=== PATIENT | female | born 1970 | race Caucasian/White ===

== ENCOUNTER 2019-09-07 23:17 | Emergency (ER) | payer OTHER ==
[~2019-09-07] VITALS: Ht 154.9 cm; Wt 74.8 kg
[~2019-09-07 23:17] MED LIST: ACET500 PO; ALBU90OI INH; ATOR20 PO; BENZTROPINE PO; Bactrim Ds Tab1 EACH PO; CEPH500; CEPH500 PO; CHLO100; CLON1; CLON2 PO; CLOT10 SUSW; CRUTCH USE; CRUTCH2 USE; CRUTCH3 USE; CYCL10 PO; Cephalexin500 MG PO; Cyclobenzaprine5 MG PO; DIPH50 PO; DOXE150; ERGO400 PO; ESCI10; ESCI20; FLAX; FLUO20; FURO20 PO; FURO40; HYDACE5; HYDACE5 PO; HYDPAM50; Hair, Skin & N1 EACH PO; IBUP600 PO; IBUP800; IBUP800 PO; LAMO100 PO; LAMO25; LITH300C PO; LITH300ER; LOPE2C PO; Loxapine50 MG PO; META800 PO; METF500 PO; METPRE4DP PO; MIRT15; MIRT15 PO; MIRT30; NAPR500; NAPR500 PO; NAPR550 PO; NEOPOLHCSU LEFTEAR; NIACIN; OXYACE5T PO; PENVK500 PO; PROM25; PROM25 PO; Percocet 5-3251 EACH PO; QUET100; QUET300; RANI150; RANI150 PO; ROXICODONE5 MG PO; RXCODACET PO; RXHYDACE PO; RXOXYACE PO; RXPENVK250 PO; RXTRAM50 PO; SULTRIDS PO; SUMA25; TRAM50 PO; TRAZ100; TRAZ150T57 PO; Ultram50 MG PO; VITAMIN D PO; Vitamin D2000 UNIT PO; ZIPR60 PO; Zofran4 MG PO
[2019-09-07 23:49] LABS: Source, Urine Clean Catch
[2019-09-07 23:49] LABS: BASOPHILS ABSOLUTE AUTO 0.07 K/mm3 (0.00-0.23); BASOPHILS PERCENT AUTO 1 % (0-2); EOSINOPHILS PERCENT AUTO 3 % (0-6); Hematocrit 44.3 % (33.0-51.0); Hemoglobin 14.2 g/dL (11.5-16.0); IMMATURE GRAN ABSOLUTE AUTO 0.02 K/mm3 (0.00-0.10); IMMATURE GRAN PERCENT AUTO 0 % (0-1); LYMPHOCYTES PERCENT AUTO 33 % (21-46); MONOCYTES ABSOLUTE AUTO 0.79 K/mm3 (0.16-1.47); MONOCYTES PERCENT AUTO 9 % (4-13); Mean Corpuscular HGB 29.5 pg (26.0-34.0); Mean Corpuscular HGB Conc 32.1 g/dL (31.5-36.5); Mean Corpuscular Volume 92 fL (80-100); Mean Platelet Volume 11.3 fL (9.1-12.4); NEUTROPHILS ABSOLUTE AUTO 4.87 K/mm3 (1.96-9.15); NEUTROPHILS PERCENT AUTO 54 % (41-73); Platelet Count 236 K/mm3 (150-400); RDW Coefficient Variation 15.2 % (11.7-14.2); RDW Standard Deviation 51.7 fL (35.1-46.3); Red Blood Cell Count 4.82 M/mm3 (3.80-5.20); White Blood Cell Count 9.05 K/mm3 (4.00-11.30)
[2019-09-07 23:53] LABS: Appearance, Urine Clear (Clear); Bilirubin, Urine 1+ (Neg); Blood, Urine Neg (Neg); Color, Urine Amber (P-Yellow); Glucose Qualitative, Urine Neg (Neg); Ketones, Urine 1+ (Neg); Leukocyte Esterase, Urine 1+ (Neg); Nitrite, Urine Neg (Neg); Protein, Urine 2+ (Neg); Specific Gravity, Urine 1.025 (1.003-1.022); Urobilinogen, Urine 1+ (Normal)
[2019-09-07 23:59] LABS: Bacteria Many /hpf; Mucus Heavy (0-Heavy); Red Blood Cells, Urine 0-2 /hpf (0-2); Squamous Epithelial Cells Mod /hpf (Few)
[2019-09-08 00:03] LABS: Acetaminophen, Random <2.0 ug/mL (10.0-30.0); Alanine Aminotransfer (ALT/SGP 21 U/L (12-78); Albumin, Blood 3.9 g/dL (3.4-5.0); Alk Phos 74 U/L (50-136); Anion Gap 7 mmol/L (6-16); Aspartate Aminotrans (AST/SGOT 32 U/L (12-37); Bilirubin, Total 0.4 mg/dL (0.1-1.0); Blood Urea Nitrogen 19 mg/dL (8-24); Bun/Creatinine Ratio 18.8 (12.0-20.0); CO2, Blood 28 mmol/L (21-32); Calcium, Blood 9.4 mg/dL (8.5-10.1); Chloride, Blood 108 mmol/L (98-108); Creatinine, Blood 1.01 mg/dL (0.40-1.00); Ethanol (Alcohol), Blood, Med <3 mg/dL; Globulin, Blood 3.8 g/dL (2.2-4.0); Glomerular Filtration Rate >60 (60-); Glucose, Blood 135 mg/dL (70-99); Potassium, Blood 4.2 mmol/L (3.5-5.5); Salicylate 2.4 mg/dL (2.8-20.0); Sodium, Blood 143 mmol/L (136-145); Total Protein, Blood 7.7 g/dL (6.4-8.2); Troponin I <0.015 ng/mL (0.000-0.040)
[2019-09-08 00:09] LABS: U Amphetamine Screen Not Detected; U Barbituate Screen Not Detected; U Benzodiazapine Screen DETECTED; U Buprenorphine Screen Not Detected; U Cannabinoids Screen DETECTED; U Cocaine Screen Not Detected; U Methadone Screen Not Detected; U Methamphetamine Screen DETECTED; U Opiates Screen Not Detected; U Oxycodone Screen Not Detected; U Phencyclidine Screen Not Detected; U Propoxyphene Screen Not Detected
[2019-09-08 00:10] LABS: Chloride (POC) 105 mmol/L (98-108); Creatinine (POC) 1.1 mg/dL (0.6-1.0); Glucose (ISTAT POC) 144 mg/dL (70-99); Hemoglobin (POC) 14.6 g/dL (12.0-16.0); Potassium (POC) 3.7 mmol/L (3.5-5.5); Sodium (POC) 142 mmol/L (135-148); Total CO2 (POC) 29 mmol/L (21-32)
== END 2019-09-08 01:25 | disposition home or self-care (01) ==
LOC: ER 23:17
PROVIDERS: Emergency Medicine
DX: F15.129 Other stimulant abuse with intoxication, unspecified (principal); Z91.040 Latex allergy status; Z88.5 Allergy status to narcotic agent; Z91.018 Allergy to other foods; Z79.899 Other long term (current) drug therapy; F31.9 Bipolar disorder, unspecified; Z87.891 Personal history of nicotine dependence
CPT/HCPCS: 71045; 80047; 80053; 81001; 81025; 82947; 84484; 85014; 85025; 87086; 93005; 93010; 96360; 99284-25; G0480; J7030; P9612

== ENCOUNTER → 2019-09-15 | Outpatient (CLI) | payer OTHER ==
[2019-09-18 04:07] LABS: CHLAMYDIA TRACHOMATIS, NAA Negative (Negative); NEISSERIA GONORRHOEAE, NAA Negative (Negative)
== END ==
LOC: LAB SHORT 17:06 → LAB 17:06
PROVIDERS: Nurse Practitioner Family
DX: R82.5 Elevated urine levels of drugs, medicaments and biological substances (principal); Z72.51 High risk heterosexual behavior
CPT/HCPCS: 87491; 87591; G0480

== ENCOUNTER 2019-12-24 20:33 | Emergency (ER) | payer OTHER ==
[~2019-12-24] VITALS: Ht 154.9 cm; Wt 74.8 kg
[~2019-12-24 20:33] MED LIST changes: +ALBU3IS; +GABA800; +LIDO700A20 TOP; +METO10; +Prednisone20 MG PO; +Robaxin-750750 MG PO; +TIZANIDINE HCL4 MG
[2019-12-24 21:18] LABS: BASOPHILS ABSOLUTE AUTO 0.05 K/mm3 (0.00-0.23); BASOPHILS PERCENT AUTO 1 % (0-2); EOSINOPHILS ABSOLUTE AUTO 0.23 K/mm3 (0.00-0.68); EOSINOPHILS PERCENT AUTO 4 % (0-6); Hematocrit 41.8 % (33.0-51.0); Hemoglobin 13.3 g/dL (11.5-16.0); IMMATURE GRAN ABSOLUTE AUTO 0.01 K/mm3 (0.00-0.10); IMMATURE GRAN PERCENT AUTO 0 % (0-1); LYMPHOCYTES ABSOLUTE AUTO 1.71 K/mm3 (0.84-5.20); LYMPHOCYTES PERCENT AUTO 28 % (21-46); MONOCYTES ABSOLUTE AUTO 0.49 K/mm3 (0.16-1.47); MONOCYTES PERCENT AUTO 8 % (4-13); Mean Corpuscular HGB 30.6 pg (26.0-34.0); Mean Corpuscular HGB Conc 31.8 g/dL (31.5-36.5); Mean Corpuscular Volume 96 fL (80-100); Mean Platelet Volume 10.9 fL (9.1-12.4); NEUTROPHILS ABSOLUTE AUTO 3.61 K/mm3 (1.96-9.15); NEUTROPHILS PERCENT AUTO 59 % (41-73); Platelet Count 242 K/mm3 (150-400); RDW Coefficient Variation 13.8 % (11.7-14.2); RDW Standard Deviation 49.3 fL (35.1-46.3); Red Blood Cell Count 4.34 M/mm3 (3.80-5.20)
[2019-12-24 21:26] LABS: International Normalized Ratio 0.96; Prothrombin Time Results 10.3 Sec (9.7-11.5)
[2019-12-24 21:30] LABS: Alanine Aminotransfer (ALT/SGP 30 U/L (12-78); Albumin, Blood 3.8 g/dL (3.4-5.0); Albumin/Globulin Ratio 1.1 (0.8-1.8); Alk Phos 64 U/L (50-136); Anion Gap 4 mmol/L (6-16); Aspartate Aminotrans (AST/SGOT 28 U/L (12-37); Bilirubin, Total 0.3 mg/dL (0.1-1.0); Blood Urea Nitrogen 18 mg/dL (8-24); Bun/Creatinine Ratio 24.7 (12.0-20.0); CO2, Blood 26 mmol/L (21-32); Calcium, Blood 8.7 mg/dL (8.5-10.1); Chloride, Blood 111 mmol/L (98-108); Creatinine, Blood 0.73 mg/dL (0.40-1.00); Ethanol (Alcohol), Blood, Med <3 mg/dL; Globulin, Blood 3.4 g/dL (2.2-4.0); Glomerular Filtration Rate >60 (60-); Glucose, Blood 98 mg/dL (70-99); Potassium, Blood 3.9 mmol/L (3.5-5.5); Sodium, Blood 141 mmol/L (136-145); Total Protein, Blood 7.2 g/dL (6.4-8.2)
[2019-12-24 23:13] LABS: Source, Urine Clean Catch
[2019-12-24 23:15] LABS: Bilirubin, Urine Neg (Neg); Blood, Urine 1+ (Neg); Glucose Qualitative, Urine Neg (Neg); Ketones, Urine Neg (Neg); Leukocyte Esterase, Urine 2+ (Neg); Nitrite, Urine Pos (Neg); Protein, Urine 1+ (Neg); Specific Gravity, Urine 1.025 (1.003-1.022); Urobilinogen, Urine NORM (Normal)
[2019-12-24] MEDS ORDERED: GABA800 (23:22)
[2019-12-24] MEDS ORDERED: DIAZ5 (23:23)
[2019-12-24 23:24] LABS: U Amphetamine Screen Not Detected; U Barbituate Screen Not Detected; U Benzodiazapine Screen DETECTED; U Buprenorphine Screen Not Detected; U Cannabinoids Screen DETECTED; U Cocaine Screen Not Detected; U Methadone Screen Not Detected; U Methamphetamine Screen Not Detected; U Opiates Screen Not Detected; U Oxycodone Screen Not Detected; U Phencyclidine Screen Not Detected; U Propoxyphene Screen Not Detected
[2019-12-24] MEDS ORDERED: OMEP20ER (23:24)
[2019-12-24 23:25] LABS: Appearance, Urine Hazy (Clear); Color, Urine Yellow (P-Yellow)
[2019-12-24 23:26] LABS: Bacteria Many /hpf; Red Blood Cells, Urine 0-2 /hpf (0-2); Squamous Epithelial Cells Rare /hpf (Few); White Blood Cells, Urine 50-100 /hpf (0-5)
[2019-12-25] MEDS ORDERED: KEFLEX500 MG PO (00:18)
== END 2019-12-25 00:45 | disposition home or self-care (01) ==
LOC: ER 20:33
PROVIDERS: Emergency Medicine; Physician Assistant
DX: N39.0 Urinary tract infection, site not specified (principal); F31.9 Bipolar disorder, unspecified; J98.4 Other disorders of lung; Z88.6 Allergy status to analgesic agent; Z91.040 Latex allergy status; Z91.018 Allergy to other foods; Z79.52 Long term (current) use of systemic steroids; Z79.899 Other long term (current) drug therapy; Z87.891 Personal history of nicotine dependence
CPT/HCPCS: 36415; 70450; 80053; 81001; 85025; 85610; 87077; 87086; 87186; 93005; 93010; 99284-25; A9270-GY; G0480

== ENCOUNTER 2020-01-15 13:10 | Emergency (ER) | payer OTHER ==
[~2020-01-15] VITALS: Ht 154.9 cm; Wt 74.8 kg
[~2020-01-15 13:10] MED LIST changes: +DIAZ5; +KEFLEX500 MG PO; +OMEP20ER
[2020-01-15 13:40] LABS: Source, Urine Catheter
[2020-01-15 13:48] LABS: BASOPHILS ABSOLUTE AUTO 0.05 K/mm3 (0.00-0.23); BASOPHILS PERCENT AUTO 1 % (0-2); EOSINOPHILS ABSOLUTE AUTO 0.18 K/mm3 (0.00-0.68); EOSINOPHILS PERCENT AUTO 2 % (0-6); Hematocrit 43.7 % (33.0-51.0); IMMATURE GRAN ABSOLUTE AUTO 0.02 K/mm3 (0.00-0.10); IMMATURE GRAN PERCENT AUTO 0 % (0-1); LYMPHOCYTES ABSOLUTE AUTO 2.15 K/mm3 (0.84-5.20); LYMPHOCYTES PERCENT AUTO 23 % (21-46); MONOCYTES ABSOLUTE AUTO 0.55 K/mm3 (0.16-1.47); MONOCYTES PERCENT AUTO 6 % (4-13); Mean Corpuscular HGB 30.8 pg (26.0-34.0); Mean Corpuscular Volume 96 fL (80-100); NEUTROPHILS PERCENT AUTO 69 % (41-73); Platelet Count 250 K/mm3 (150-400); RDW Coefficient Variation 13.9 % (11.7-14.2); RDW Standard Deviation 49.4 fL (35.1-46.3); Red Blood Cell Count 4.54 M/mm3 (3.80-5.20); White Blood Cell Count 9.35 K/mm3 (4.00-11.30)
[2020-01-15 13:48] LABS: Bilirubin, Urine Neg (Neg); Blood, Urine 5+ (Neg); Glucose Qualitative, Urine Neg (Neg); Ketones, Urine 2+ (Neg); Leukocyte Esterase, Urine 1+ (Neg); Nitrite, Urine Neg (Neg); Protein, Urine 2+ (Neg); Specific Gravity, Urine 1.015 (1.003-1.022); Urobilinogen, Urine NORM (Normal); pH, Urine 6.5 (5.0-8.0)
[2020-01-15 13:55] LABS: Appearance, Urine Hazy (Clear); Color, Urine Yellow (P-Yellow)
[2020-01-15 13:56] LABS: Alanine Aminotransfer (ALT/SGP 22 U/L (12-78); Albumin, Blood 3.7 g/dL (3.4-5.0); Albumin/Globulin Ratio 1.2 (0.8-1.8); Alk Phos 62 U/L (50-136); Anion Gap 6 mmol/L (6-16); Aspartate Aminotrans (AST/SGOT 24 U/L (12-37); Bilirubin, Total 0.4 mg/dL (0.1-1.0); Blood Urea Nitrogen 17 mg/dL (8-24); Bun/Creatinine Ratio 19.4 (12.0-20.0); CO2, Blood 28 mmol/L (21-32); Calcium, Blood 9.1 mg/dL (8.5-10.1); Chloride, Blood 109 mmol/L (98-108); Creatinine, Blood 0.88 mg/dL (0.40-1.00); Globulin, Blood 3.1 g/dL (2.2-4.0); Glomerular Filtration Rate >60 (60-); Glucose, Blood 131 mg/dL (70-99); Potassium, Blood 3.3 mmol/L (3.5-5.5); Sodium, Blood 143 mmol/L (136-145); Total Protein, Blood 6.8 g/dL (6.4-8.2)
[2020-01-15 13:56] LABS: Bacteria Few /hpf; Red Blood Cells, Urine TNTC /hpf (0-2); Squamous Epithelial Cells Few /hpf (Few)
[2020-01-15] MEDS ORDERED: ONDA4ODT MM (14:40)
[2020-01-15] MEDS ORDERED: Norco 10-325 T1 EACH PO (14:40)
== END 2020-01-15 15:15 | disposition home or self-care (01) ==
LOC: ER 13:10
PROVIDERS: Emergency Medicine
DX: N20.0 Calculus of kidney (principal); Z91.040 Latex allergy status; F31.9 Bipolar disorder, unspecified; M54.2 Cervicalgia; G89.29 Other chronic pain; Z79.899 Other long term (current) drug therapy; Z87.891 Personal history of nicotine dependence
CPT/HCPCS: 36415; 80053; 81001; 83690; 85025; 87086; 93005; 93010; 96361; 96374-59; 96375; 99284-25; J1200; J1630; J2405; J3010; J7030; P9612

== ENCOUNTER 2020-11-17 06:46 | Day surgery (SDC) | payer OTHER ==
[~2020-11-17] VITALS: Ht 154.9 cm; Wt 70.0 kg
[~2020-11-17 06:46] MED LIST changes: +ASPI81CH PO; +DIAZ10 PO; +GABA800 PO; +Nitroglycerin1 EAC3 TOP; +Norco 10-325 T1 EACH PO; +ONDA4 PO; +ONDA4ODT MM; +ROSU5 PO
[2020-11-17] MEDS ORDERED: ERGO50000 PO ×2 (07:19→07:20)
--- NOTE | 2020-11-17 09:17 | NUR ---
PT RETURNED TO RECOVERY ROOM IN RECLINER. BILAT RADIAL TR BAND SITES SOFT NON-TENDER WITH NO HEMATOMA, NO PULSATILE BLEEDING. PT DENIES CP. CALL LIGHT IN REACH.
--- NOTE | 2020-11-17 09:40 | NUR ---
BECAUSE OF BILAT TR BANDS; BP CUFF HAS BEEN ON PT'S LEFT ANKLE - PT SITTING UP IN RECLINER WITH LEGS DOWN. RECLINER NOW PLACED IN RECLINED POSITION WITH LEGS MORE ELEVATED.
--- NOTE | 2020-11-17 10:20 | NUR ---
6 CC OF AIR REMOVED FROM NOW DEFLATED RIGHT TR BAND OVER 8 MIN BY [id number] AND 10 CC OF AIR REMOVED FROM NOW DEFLATED LEFT TR BAND OVER 10 MIN BY [id number]. BILAT DEFLATED TR BAND SITES SOFT NON-TENDER WITH NO HEMATOMA AND NO PULSATILE BLEEDING.
--- NOTE | 2020-11-17 10:28 | NUR ---
DISCHARGE INSTRUCTIONS REVIEWED ALL QUESTIONS ANSWERED.
--- NOTE | 2020-11-17 11:54 | NUR ---
19M G IV WAS DISCONTINUED FROM LEFT AC WITH INTACT CANNULA, DRESSED AND WAS IN ESCORT WHEELCHAIR FOR DISCHARGE WHEN THIS RN NOTICED BLEEDING UNDER POLYMEM LEFT RADIAL SITE. PT WAS PLACED BACK IN RECLINER AND IMMEDIATE MANUAL PRESSURE WAS HELD FOR 15 MIN. PT HAD VAGEL RESPONSE DURING MANUAL HOLD OF LEFT RADIAL SITE AND BECAME UNRESPONSIVE FOR PROXIMATELY ONE MINUTE. VS STABLE, BUT NATALIYA CARDIA AND DR MUNIZ ARRIVED TO EVALUATE PT. PT DENIES CHEST PAIN LEFT RADIAL TR BAND SITE SOFT WITH NO HEMATOMA AND NO PULSATILE BLEEDING. CALL LIGHT IN REACH.
--- NOTE | 2020-11-17 12:12 | NUR ---
PT C/O 1/10 CHEST PRESSURE; DR MUNIZ AWARE. NO CHANGES TO LEFT RADIAL SITE.
--- NOTE | 2020-11-17 12:14 | NUR ---
DR MUNIZ IN ROOM TO SEE PT.
--- NOTE | 2020-11-17 12:16 | NUR ---
PT NOW DENIES CP.
--- NOTE | 2020-11-17 13:58 | NUR ---
NO CHANGES TO BILAT RADIAL SITES; BOTH SOFT WITH NO HEMATOMA,NO PULSATILE BLEEDING WITH POLYMEMS AND WRIST BOARDS IN PLACE. PT DENIED CP. 22 G IV DISCONTINUED FROM LEFT AC WITH INTACT DRESSING. PT ESCORTED OUT VIA WHEELCHAIR ESCORT AND WITH ZIO PATCH IN PLACE.
== END 2020-11-17 13:50 | disposition home or self-care (01) ==
LOC: MHTC 06:46
DX: I25.118 Atherosclerotic heart disease of native coronary artery with other forms of angina pectoris (principal); I10 Essential (primary) hypertension; R93.1 Abnormal findings on diagnostic imaging of heart and coronary circulation; E78.5 Hyperlipidemia, unspecified; J45.909 Unspecified asthma, uncomplicated; Z79.82 Long term (current) use of aspirin; E66.9 Obesity, unspecified; G47.33 Obstructive sleep apnea (adult) (pediatric); M54.9 Dorsalgia, unspecified; Z91.040 Latex allergy status; Z88.5 Allergy status to narcotic agent; Z91.018 Allergy to other foods
CPT/HCPCS: 76937; 85347; 93005; 93010; 93246; 93458; 99152; 99153; C1769; C1894; J0461; J1644; J2250; J3010; J7030; J7040; J7050; Q9967

== ENCOUNTER 2021-01-23 15:02 | Emergency (ER) | payer OTHER ==
[~2021-01-23] VITALS: Ht 154.9 cm; Wt 75.3 kg
== END 2021-01-23 17:39 | disposition home or self-care (01) ==
LOC: ER 15:02
DX: S06.9X9A Unspecified intracranial injury with loss of consciousness of unspecified duration, initial encounter (principal); Z79.899 Other long term (current) drug therapy; W10.9XXA Fall (on) (from) unspecified stairs and steps, initial encounter
CPT/HCPCS: 36415; 70450; 80053; 81001; 85025; 87077; 87086; 87186; 93005; 93010; 99284-25

== ENCOUNTER 2021-03-27 08:57 | Emergency (ER) | payer OTHER ==
[~2021-03-27] VITALS: Ht 154.9 cm; Wt 74.8 kg
[~2021-03-27 08:57] MED LIST changes: +ERGO50000 PO
[2021-03-27] MEDS ORDERED: Robaxin750 MG PO (09:58)
== END 2021-03-27 10:15 | disposition home or self-care (01) ==
LOC: ER 08:57
DX: S16.1XXA Strain of muscle, fascia and tendon at neck level, initial encounter (principal); Z79.82 Long term (current) use of aspirin; Z79.899 Other long term (current) drug therapy; Z91.040 Latex allergy status; Z88.5 Allergy status to narcotic agent; Z91.018 Allergy to other foods; Z86.73 Personal history of transient ischemic attack (TIA), and cerebral infarction without residual deficits; X50.0XXA Overexertion from strenuous movement or load, initial encounter; Z87.891 Personal history of nicotine dependence
CPT/HCPCS: 99283

== ENCOUNTER 2021-05-13 14:54 | Emergency (ER) | payer OTHER ==
[~2021-05-13] VITALS: Ht 154.9 cm; Wt 76.7 kg
[~2021-05-13 14:54] MED LIST changes: +Robaxin750 MG PO
[2021-05-13 15:39] LABS: BASOPHILS ABSOLUTE AUTO 0.07 K/mm3 (0.00-0.23); BASOPHILS PERCENT AUTO 1 % (0-2); EOSINOPHILS ABSOLUTE AUTO 0.15 K/mm3 (0.00-0.68); EOSINOPHILS PERCENT AUTO 2 % (0-6); Hematocrit 37.1 % (33.0-51.0); Hemoglobin 12.5 g/dL (11.5-16.0); IMMATURE GRAN ABSOLUTE AUTO 0.02 K/mm3 (0.00-0.10); IMMATURE GRAN PERCENT AUTO 0 % (0-1); LYMPHOCYTES ABSOLUTE AUTO 1.65 K/mm3 (0.84-5.20); LYMPHOCYTES PERCENT AUTO 25 % (21-46); MONOCYTES ABSOLUTE AUTO 0.53 K/mm3 (0.16-1.47); MONOCYTES PERCENT AUTO 8 % (4-13); Mean Corpuscular HGB 31.3 pg (26.0-34.0); Mean Corpuscular HGB Conc 33.7 g/dL (31.5-36.5); Mean Corpuscular Volume 93 fL (80-100); Mean Platelet Volume 11.3 fL (9.1-12.4); NEUTROPHILS ABSOLUTE AUTO 4.08 K/mm3 (1.96-9.15); NEUTROPHILS PERCENT AUTO 63 % (41-73); Platelet Count 195 K/mm3 (150-400); RDW Coefficient Variation 12.9 % (11.7-14.2)
[2021-05-13 15:59] LABS: Alanine Aminotransfer (ALT/SGP 26 U/L (12-78); Albumin, Blood 3.9 g/dL (3.4-5.0); Albumin/Globulin Ratio 1.3 (0.8-1.8); Alk Phos 50 U/L (50-136); Anion Gap 5 mmol/L (6-16); Aspartate Aminotrans (AST/SGOT 26 U/L (12-37); Bilirubin, Total 0.5 mg/dL (0.1-1.0); Blood Urea Nitrogen 26 mg/dL (8-24); Bun/Creatinine Ratio 34.2 (12.0-20.0); CO2, Blood 25 mmol/L (21-32); Calcium, Blood 9.3 mg/dL (8.5-10.1); Chloride, Blood 111 mmol/L (98-108); Creatinine, Blood 0.76 mg/dL (0.40-1.00); Glomerular Filtration Rate >60 (60-); Glucose, Blood 109 mg/dL (70-99); Potassium, Blood 3.7 mmol/L (3.5-5.5); Sodium, Blood 141 mmol/L (136-145); Total Protein, Blood 6.9 g/dL (6.4-8.2); Troponin I <0.015 ng/mL (0.000-0.040)
== END 2021-05-13 20:06 | disposition home or self-care (01) ==
LOC: ER 14:54
PROVIDERS: Physician Assistant
DX: R07.9 Chest pain, unspecified (principal); Z79.82 Long term (current) use of aspirin; Z79.899 Other long term (current) drug therapy; Z87.891 Personal history of nicotine dependence
CPT/HCPCS: 36415; 71046; 80053; 83690; 83880; 84484; 85025; 93005; 93010; 99285-25

== ENCOUNTER 2021-05-16 19:03 | Emergency (ER) | payer OTHER ==
[~2021-05-16] VITALS: Ht 154.9 cm; Wt 82.5 kg
[2021-05-16 20:29] LABS: BASOPHILS ABSOLUTE AUTO 0.05 K/mm3 (0.00-0.23); BASOPHILS PERCENT AUTO 1 % (0-2); EOSINOPHILS ABSOLUTE AUTO 0.29 K/mm3 (0.00-0.68); EOSINOPHILS PERCENT AUTO 6 % (0-6); Hematocrit 34.5 % (33.0-51.0); Hemoglobin 11.4 g/dL (11.5-16.0); IMMATURE GRAN ABSOLUTE AUTO 0.02 K/mm3 (0.00-0.10); IMMATURE GRAN PERCENT AUTO 0 % (0-1); LYMPHOCYTES ABSOLUTE AUTO 1.35 K/mm3 (0.84-5.20); LYMPHOCYTES PERCENT AUTO 25 % (21-46); MONOCYTES ABSOLUTE AUTO 0.45 K/mm3 (0.16-1.47); MONOCYTES PERCENT AUTO 9 % (4-13); Mean Corpuscular HGB 31.8 pg (26.0-34.0); Mean Corpuscular Volume 96 fL (80-100); Mean Platelet Volume 11.2 fL (9.1-12.4); NEUTROPHILS ABSOLUTE AUTO 3.16 K/mm3 (1.96-9.15); NEUTROPHILS PERCENT AUTO 59 % (41-73); Platelet Count 184 K/mm3 (150-400); RDW Coefficient Variation 13.4 % (11.7-14.2); RDW Standard Deviation 47.9 fL (35.1-46.3); Red Blood Cell Count 3.58 M/mm3 (3.80-5.20); White Blood Cell Count 5.32 K/mm3 (4.00-11.30)
[2021-05-16 20:43] LABS: Source, Urine Clean Catch
[2021-05-16 20:46] LABS: Appearance, Urine Clear (Clear); Bilirubin, Urine Neg (Neg); Blood, Urine Neg (Neg); Color, Urine Yellow (P-Yellow); Glucose Qualitative, Urine Neg (Neg); Ketones, Urine Neg (Neg); Leukocyte Esterase, Urine 1+ (Neg); Nitrite, Urine Neg (Neg); Protein, Urine Neg (Neg); Urobilinogen, Urine NORM (Normal)
[2021-05-16 20:58] LABS: Alanine Aminotransfer (ALT/SGP 23 U/L (12-78); Albumin, Blood 3.6 g/dL (3.4-5.0); Albumin/Globulin Ratio 1.2 (0.8-1.8); Alk Phos 44 U/L (50-136); Anion Gap 3 mmol/L (6-16); Aspartate Aminotrans (AST/SGOT 22 U/L (12-37); Bilirubin, Total 0.3 mg/dL (0.1-1.0); Blood Urea Nitrogen 28 mg/dL (8-24); Bun/Creatinine Ratio 28.3 (12.0-20.0); CO2, Blood 27 mmol/L (21-32); Calcium, Blood 8.7 mg/dL (8.5-10.1); Chloride, Blood 113 mmol/L (98-108); Creatinine, Blood 0.99 mg/dL (0.40-1.00); Glomerular Filtration Rate 59 (60-); Glucose, Blood 106 mg/dL (70-99); Potassium, Blood 4.1 mmol/L (3.5-5.5); Sodium, Blood 143 mmol/L (136-145); Total Protein, Blood 6.6 g/dL (6.4-8.2); Troponin I <0.015 ng/mL (0.000-0.040)
[2021-05-16 21:06] LABS: Bacteria Many /hpf; Red Blood Cells, Urine Not Seen /hpf (0-2); Squamous Epithelial Cells Few /hpf (Few); White Blood Cells, Urine 25-50 /hpf (0-5)
[2021-05-17 00:30] LABS: Free Thyroxine 0.87 ng/dL (0.70-1.60); Thyroid Stimulating Hormone 0.358 uIU/mL (0.360-4.800)
== END 2021-05-17 01:36 | disposition home or self-care (01) ==
LOC: ER 19:03
PROVIDERS: Physician Assistant; Student in an Organized Health Care Education/Training Program
DX: R06.02 Shortness of breath (principal); M79.89 Other specified soft tissue disorders; R07.9 Chest pain, unspecified; R00.1 Bradycardia, unspecified; Z87.891 Personal history of nicotine dependence; Z91.040 Latex allergy status; Z88.5 Allergy status to narcotic agent; Z91.018 Allergy to other foods; Z79.82 Long term (current) use of aspirin; Z79.899 Other long term (current) drug therapy
CPT/HCPCS: 36415; 71046; 80053; 81001; 83690; 83880; 84439; 84443; 84484; 85025; 87077; 87086; 87186; 93005; 93010; 93970; 99285-25

== ENCOUNTER 2021-06-23 13:48 | Emergency (ER) | payer OTHER ==
[~2021-06-23] VITALS: Ht 154.9 cm; Wt 80.7 kg
[2021-06-23 14:28] LABS: BASOPHILS ABSOLUTE AUTO 0.04 K/mm3 (0.00-0.23); BASOPHILS PERCENT AUTO 1 % (0-2); EOSINOPHILS ABSOLUTE AUTO 0.25 K/mm3 (0.00-0.68); EOSINOPHILS PERCENT AUTO 4 % (0-6); Hematocrit 37.6 % (33.0-51.0); Hemoglobin 12.4 g/dL (11.5-16.0); IMMATURE GRAN ABSOLUTE AUTO 0.01 K/mm3 (0.00-0.10); IMMATURE GRAN PERCENT AUTO 0 % (0-1); LYMPHOCYTES ABSOLUTE AUTO 1.47 K/mm3 (0.84-5.20); LYMPHOCYTES PERCENT AUTO 24 % (21-46); MONOCYTES ABSOLUTE AUTO 0.49 K/mm3 (0.16-1.47); MONOCYTES PERCENT AUTO 8 % (4-13); Mean Corpuscular HGB 31.2 pg (26.0-34.0); Mean Corpuscular Volume 95 fL (80-100); Mean Platelet Volume 10.9 fL (9.1-12.4); NEUTROPHILS ABSOLUTE AUTO 3.91 K/mm3 (1.96-9.15); NEUTROPHILS PERCENT AUTO 63 % (41-73); Platelet Count 200 K/mm3 (150-400); Red Blood Cell Count 3.97 M/mm3 (3.80-5.20); White Blood Cell Count 6.17 K/mm3 (4.00-11.30)
[2021-06-23 14:54] LABS: Alanine Aminotransfer (ALT/SGP 23 U/L (12-78); Albumin, Blood 3.9 g/dL (3.4-5.0); Albumin/Globulin Ratio 1.3 (0.8-1.8); Alk Phos 45 U/L (50-136); Anion Gap 3 mmol/L (6-16); Aspartate Aminotrans (AST/SGOT 32 U/L (12-37); Bilirubin, Total 0.3 mg/dL (0.1-1.0); Blood Urea Nitrogen 29 mg/dL (8-24); Bun/Creatinine Ratio 35.4 (12.0-20.0); CO2, Blood 26 mmol/L (21-32); Calcium, Blood 9.2 mg/dL (8.5-10.1); Chloride, Blood 109 mmol/L (98-108); Creatinine, Blood 0.82 mg/dL (0.40-1.00); Globulin, Blood 3.1 g/dL (2.2-4.0); Glomerular Filtration Rate >60 (60-); Glucose, Blood 87 mg/dL (70-99); Potassium, Blood 4.5 mmol/L (3.5-5.5); Sodium, Blood 138 mmol/L (136-145); Troponin I <0.015 ng/mL (0.000-0.040)
== END 2021-06-23 18:05 | disposition home or self-care (01) ==
LOC: ER 13:48
PROVIDERS: Student in an Organized Health Care Education/Training Program
DX: R60.0 Localized edema (principal); Z91.040 Latex allergy status; Z88.5 Allergy status to narcotic agent; Z91.018 Allergy to other foods; Z79.899 Other long term (current) drug therapy; Z79.82 Long term (current) use of aspirin; Z87.891 Personal history of nicotine dependence
CPT/HCPCS: 36415; 71046; 80053; 83880; 84484; 85025; 93005; 93010

== ENCOUNTER → 2021-09-20 | Outpatient (CLI) | payer OTHER | END | disposition home or self-care (01) | LOC: LAB 15:52 → LAB SHORT 15:52 | DX: R30.0 Dysuria (principal) | CPT/HCPCS: 87077; 87086; 87186 ==

== ENCOUNTER → 2022-03-07 | Outpatient (CLI) | payer OTHER ==
[2022-03-07 14:56] LABS: Source, Urine Clean Catch
[2022-03-07 17:33] LABS: Appearance, Urine Hazy (Clear); Bilirubin, Urine Neg (Neg); Blood, Urine 1+ (Neg); Color, Urine Yellow (P-Yellow); Glucose Qualitative, Urine Neg (Neg); Ketones, Urine Neg (Neg); Leukocyte Esterase, Urine 2+ (Neg); Nitrite, Urine Pos (Neg); Protein, Urine 1+ (Neg); Specific Gravity, Urine 1.015 (1.003-1.022); Urobilinogen, Urine NORM (Normal); pH, Urine 6.5 (5.0-8.0)
[2022-03-07 17:41] LABS: Bacteria Many /hpf; Squamous Epithelial Cells Mod /hpf (Few); Transitional Epithelial Cells Few /hpf (0-Rare); White Blood Cells, Urine 25-50 /hpf (0-5)
[2022-03-07 17:42] LABS: Hyaline Casts 0-2 /lpf (0-2)
== END | disposition home or self-care (01) ==
LOC: LAB SHORT 14:55 → LAB FUT 02-20 14:25 → EDSTATUS 02-20 14:25
PROVIDERS: Obstetrics & Gynecology Female Pelvic Medicine and Reconstructive Surgery
DX: N39.41 Urge incontinence (principal)
CPT/HCPCS: 81001

== ENCOUNTER → 2022-07-18 | Outpatient (CLI) | payer OTHER | END | disposition home or self-care (01) | LOC: LAB 14:40 → LAB SHORT 14:40 | DX: H60.501 Unspecified acute noninfective otitis externa, right ear (principal) | CPT/HCPCS: 87070; 87077; 87147; 87186; 87205 ==

== ENCOUNTER 2022-10-14 11:14 | Emergency (ER) | payer OTHER ==
[~2022-10-14] VITALS: Ht 154.9 cm; Wt 77.1 kg
== END 2022-10-14 15:13 | disposition home or self-care (01) ==
LOC: ER 11:14
DX: M25.511 Pain in right shoulder (principal); Z91.040 Latex allergy status; Z88.5 Allergy status to narcotic agent; Z91.018 Allergy to other foods; Z79.82 Long term (current) use of aspirin; Z79.899 Other long term (current) drug therapy
CPT/HCPCS: 73030; 93971

== ENCOUNTER → 2023-01-30 | Outpatient (CLI) | payer OTHER | END | disposition home or self-care (01) | LOC: LAB SHORT 15:30 → LAB 15:30 | DX: B35.0 Tinea barbae and tinea capitis (principal) | CPT/HCPCS: 87070; 87077; 87147; 87186; 87205 ==

== ENCOUNTER 2023-02-07 12:00 | Emergency (ER) | payer OTHER ==
[~2023-02-07] VITALS: Ht 162.6 cm; Wt 72.6 kg
[2023-02-07 12:32] LABS: BASOPHILS ABSOLUTE AUTO 0.04 K/mm3 (0.00-0.23); BASOPHILS PERCENT AUTO 1 % (0-2); EOSINOPHILS ABSOLUTE AUTO 0.13 K/mm3 (0.00-0.68); EOSINOPHILS PERCENT AUTO 2 % (0-6); Hematocrit 39.1 % (33.0-51.0); Hemoglobin 13.2 g/dL (11.5-16.0); IMMATURE GRAN ABSOLUTE AUTO 0.01 K/mm3 (0.00-0.10); IMMATURE GRAN PERCENT AUTO 0 % (0-1); LYMPHOCYTES ABSOLUTE AUTO 1.29 K/mm3 (0.84-5.20); LYMPHOCYTES PERCENT AUTO 23 % (21-46); MONOCYTES ABSOLUTE AUTO 0.46 K/mm3 (0.16-1.47); MONOCYTES PERCENT AUTO 8 % (4-13); Mean Corpuscular HGB Conc 33.8 g/dL (31.5-36.5); Mean Corpuscular Volume 92 fL (80-100); NEUTROPHILS ABSOLUTE AUTO 3.69 K/mm3 (1.96-9.15); NEUTROPHILS PERCENT AUTO 66 % (41-73); Platelet Count 196 K/mm3 (150-400); RDW Coefficient Variation 12.2 % (11.7-14.2); RDW Standard Deviation 40.7 fL (35.1-46.3); Red Blood Cell Count 4.26 M/mm3 (3.80-5.20); White Blood Cell Count 5.62 K/mm3 (4.00-11.30)
[2023-02-07 12:50] LABS: Albumin, Blood 3.6 g/dL (3.4-5.0); Albumin/Globulin Ratio 1.2 (0.8-1.8); Bilirubin, Total 0.3 mg/dL (0.1-1.0); Bun/Creatinine Ratio 16.2 (12.0-20.0); Calcium, Blood 9.4 mg/dL (8.5-10.1); Creatinine, Blood 0.92 mg/dL (0.40-1.00); Globulin, Blood 2.9 g/dL (2.2-4.0); Total Protein, Blood 6.5 g/dL (6.4-8.2)
[2023-02-07 15:00] VITALS: BP 117/67
== END 2023-02-07 15:19 | disposition home or self-care (01) ==
LOC: ER 12:00
PROVIDERS: Student in an Organized Health Care Education/Training Program
DX: R55 Syncope and collapse (principal); Z88.5 Allergy status to narcotic agent; Z91.040 Latex allergy status; Z91.018 Allergy to other foods; Z79.899 Other long term (current) drug therapy; Z88.6 Allergy status to analgesic agent
CPT/HCPCS: 36415; 71045; 80053; 82947; 85025; 93005; 93010; 99284-25

== ENCOUNTER → 2023-04-30 | Outpatient (CLI) | payer OTHER | END | disposition home or self-care (01) | LOC: LAB 16:42 → LAB SHORT 16:42 | DX: R35.0 Frequency of micturition (principal) | CPT/HCPCS: 87077; 87086; 87186 ==

== ENCOUNTER → 2023-06-09 | Outpatient (CLI) | payer OTHER | END | disposition home or self-care (01) | LOC: LAB SHORT 16:56 → LAB 16:56 | DX: R30.0 Dysuria (principal) | CPT/HCPCS: 87077; 87086; 87186 ==

== ENCOUNTER → 2023-10-10 | Outpatient (CLI) | payer OTHER ==
[~2023-10-10] MED LIST changes: +LAMO25 PO; +OMEP20ER PO; +OXYB5ER PO
== END | disposition home or self-care (01) ==
LOC: LAB 17:57 → LAB SHORT 17:57
DX: A49.02 Methicillin resistant Staphylococcus aureus infection, unspecified site (principal)
CPT/HCPCS: 87070; 87077; 87147; 87186; 87205

== ENCOUNTER 2023-11-03 06:05 | Day surgery (SDC) | payer OTHER ==
[~2023-11-03] VITALS: Ht 154.9 cm; Wt 86.4 kg
[~2023-11-03 06:05] MED LIST changes: -LAMO25 PO; -OMEP20ER PO; -OXYB5ER PO
[2023-11-03] MEDS ORDERED: Robaxin750 MG PO (06:40)
[2023-11-03] MEDS ORDERED: OMEP20ER PO (06:41)
[2023-11-03] MEDS ORDERED: LAMO25 PO (06:41)
[2023-11-03] MEDS ORDERED: OXYB5ER PO (06:41)
--- NOTE | 2023-11-03 08:03 | NUR ---
11/03/23 0803 Nini Oakes TIME OUT PERFORMED AT BEDSIDE WITH DR MORRIS AT 0724. PT PLACED ON 3L O2 VIA NC FOR NERVE BLOCK. NERVE BLOCK PERFORMED BY DR MORRIS FOR R SHOULDER ARTHROPLASTY (REVERSAL). PT GIVE TOTAL OF VERSED 2MG IV AND FENTANYL 25MCG IV DURING NERVE BLOCK. PT TOLERATED WELL. SPO2 MONITORED THROUGHOUT.
--- NOTE | 2023-11-03 08:45 | NUR ---
11/03/23 0845 Colette Laird MAX, SPIDER, WEDGE UNDER KNEES, LEFT ARM SECURED IN GEL PADDED ARM BOARD, GEL UNDER SEAT BELTS X2, KIDNEY BOLSTER, FOAM HEAD POSITIONER. POSITION VERIFIED BY BOTH SURGEON AND ANESTHESIOLOGIST.
--- NOTE | 2023-11-03 10:29 | NUR ---
11/03/23 1029 Luli Hay PT ABLE TO SET UP TO USE BED SALDIVAR.
[2023-11-03 10:40] VITALS: BP 113/80
--- NOTE | 2023-11-03 10:57 | NUR ---
11/03/23 Daniel7 Luli Hay STARTED 1050
== END 2023-11-03 12:02 | disposition home or self-care (01) ==
LOC: ORSCSDS 06:05
PROVIDERS: Orthopaedic Surgery
PROC: 0RRJ00Z Replacement of Right Shoulder Joint with Reverse Ball and Socket Synthetic Substitute, Open Approach (ICD-10-PCS; principal; 2023-11-03 07:30)
DX: M19.011 Primary osteoarthritis, right shoulder (principal); I25.10 Atherosclerotic heart disease of native coronary artery without angina pectoris; J44.9 Chronic obstructive pulmonary disease, unspecified; Z87.891 Personal history of nicotine dependence; K21.9 Gastro-esophageal reflux disease without esophagitis; E66.9 Obesity, unspecified; Z68.36 Body mass index [BMI] 36.0-36.9, adult; K76.0 Fatty (change of) liver, not elsewhere classified; Z79.899 Other long term (current) drug therapy; G47.33 Obstructive sleep apnea (adult) (pediatric); F31.9 Bipolar disorder, unspecified; F25.9 Schizoaffective disorder, unspecified
CPT/HCPCS: 73030; A9270; C1713; C1776; J0171; J0696; J1100; J2250; J2405; J2704; J2795; J3010; J3370; J7120

== ENCOUNTER → 2024-01-19 | Outpatient (CLI) | payer OTHER ==
[~2024-01-19] MED LIST changes: +AMLO5 PO; +LAMO25 PO; +NEOPOLHCSU RIGHTEAR; +OMEP20ER PO; +OXYB5ER PO; +VANCOMYCIN HCL1 G1 PO; +VISBIOME 112.51 EACH PO
== END ==
LOC: LAB SHORT 14:35 → LAB 14:35
DX: H60.509 Unspecified acute noninfective otitis externa, unspecified ear (principal)
CPT/HCPCS: 87070; 87077; 87147; 87186; 87205

== ENCOUNTER 2024-06-12 08:19 | Emergency (ER) | payer OTHER ==
[~2024-06-12] VITALS: Ht 149.9 cm; Wt 73.5 kg
[2024-06-12] MEDS ORDERED: FentaNYL Citrate 50 MCG/ML 2 ML Injection IV ONE (09:25)
[2024-06-12] MEDS ORDERED: Ondansetron HCl 2 MG / ML 2ML Vial IV ONE (09:25)
[2024-06-12 09:51] LABS: Albumin, Blood 3.8 g/dL (3.4-5.0); Albumin/Globulin Ratio 1.1 (0.8-1.8); Bilirubin, Total 0.8 mg/dL (0.1-1.0); Bun/Creatinine Ratio 14.3 (12.0-20.0); Calcium, Blood 9.5 mg/dL (8.5-10.1); Creatinine, Blood 0.84 mg/dL (0.40-1.00); Globulin, Blood 3.6 g/dL (2.2-4.0); Potassium, Blood 4.2 mmol/L (3.5-5.5); Total Protein, Blood 7.4 g/dL (6.4-8.2)
[2024-06-12 10:08] LABS: BASOPHILS ABSOLUTE AUTO 0.04 K/mm3 (0.00-0.23); BASOPHILS PERCENT AUTO 1 % (0-2); EOSINOPHILS ABSOLUTE AUTO 0.14 K/mm3 (0.00-0.68); EOSINOPHILS PERCENT AUTO 2 % (0-6); Hematocrit 38.5 % (33.0-51.0); Hemoglobin 12.9 g/dL (11.5-16.0); IMMATURE GRAN ABSOLUTE AUTO 0.01 K/mm3 (0.00-0.10); IMMATURE GRAN PERCENT AUTO 0 % (0-1); LYMPHOCYTES ABSOLUTE AUTO 1.16 K/mm3 (0.84-5.20); LYMPHOCYTES PERCENT AUTO 18 % (21-46); MONOCYTES ABSOLUTE AUTO 0.38 K/mm3 (0.16-1.47); MONOCYTES PERCENT AUTO 6 % (4-13); Mean Corpuscular HGB 31.5 pg (26.0-34.0); Mean Corpuscular HGB Conc 33.5 g/dL (31.5-36.5); Mean Corpuscular Volume 94 fL (80-100); Mean Platelet Volume 11.3 fL (9.1-12.4); NEUTROPHILS ABSOLUTE AUTO 4.77 K/mm3 (1.96-9.15); NEUTROPHILS PERCENT AUTO 73 % (41-73); Platelet Count 179 K/mm3 (150-400); RDW Coefficient Variation 12.6 % (11.7-14.2); RDW Standard Deviation 43.7 fL (35.1-46.3)
[2024-06-12 10:50] VITALS: BP 109/48
[2024-06-12 11:05] LABS: Source, Urine Clean Catch
[2024-06-12] MEDS ORDERED: DICY20 PO (11:08)
[2024-06-12] MEDS ORDERED: AMOCLA875 PO (11:08)
[2024-06-12 11:21] LABS: Appearance, Urine Hazy (Clear); Bilirubin, Urine Neg (Neg); Blood, Urine 2+ (Neg); Color, Urine Yellow (P-Yellow); Glucose Qualitative, Urine Neg (Neg); Ketones, Urine 3+ (Neg); Leukocyte Esterase, Urine 2+ (Neg); Nitrite, Urine Neg (Neg); Protein, Urine 1+ (Neg); Urobilinogen, Urine NORM (Normal)
[2024-06-12 11:57] LABS: White Blood Cells, Urine 50-100 /hpf (0-5)
[2024-06-12 11:58] LABS: Bacteria Few /hpf; Squamous Epithelial Cells Mod /hpf (Few)
== END 2024-06-12 11:30 | disposition home or self-care (01) ==
LOC: ER 08:19
PROVIDERS: Emergency Medicine; Physician Assistant
DX: K52.9 Noninfective gastroenteritis and colitis, unspecified (principal); Z88.5 Allergy status to narcotic agent; Z91.040 Latex allergy status; Z91.018 Allergy to other foods; Z79.899 Other long term (current) drug therapy; K21.9 Gastro-esophageal reflux disease without esophagitis; Z87.891 Personal history of nicotine dependence
CPT/HCPCS: 74177; 80053; 81001; 82272; 83690; 83735; 85025; 87077; 87086; 87186; 93005; 93010; 96374; 96375; 99284-25; J2405; J3010; Q9967

== ENCOUNTER 2024-07-28 00:56 | Emergency (ER) | payer OTHER ==
[~2024-07-28] VITALS: Ht 149.9 cm; Wt 74.8 kg
[~2024-07-28 00:56] MED LIST changes: +AMOCLA875 PO; +DICY20 PO
[2024-07-28] MEDS ORDERED: FentaNYL Citrate 50 MCG/ML 2 ML Injection IV PRN (04:50)
[2024-07-28 05:05] LABS: BASOPHILS ABSOLUTE AUTO 0.04 K/mm3 (0.00-0.23); BASOPHILS PERCENT AUTO 1 % (0-2); EOSINOPHILS ABSOLUTE AUTO 0.14 K/mm3 (0.00-0.68); EOSINOPHILS PERCENT AUTO 3 % (0-6); Hemoglobin 12.2 g/dL (11.5-16.0); IMMATURE GRAN ABSOLUTE AUTO 0.01 K/mm3 (0.00-0.10); IMMATURE GRAN PERCENT AUTO 0 % (0-1); LYMPHOCYTES ABSOLUTE AUTO 1.64 K/mm3 (0.84-5.20); LYMPHOCYTES PERCENT AUTO 32 % (21-46); MONOCYTES ABSOLUTE AUTO 0.36 K/mm3 (0.16-1.47); MONOCYTES PERCENT AUTO 7 % (4-13); Mean Corpuscular HGB 31.4 pg (26.0-34.0); Mean Corpuscular Volume 95 fL (80-100); Mean Platelet Volume 10.6 fL (9.1-12.4); NEUTROPHILS ABSOLUTE AUTO 2.98 K/mm3 (1.96-9.15); NEUTROPHILS PERCENT AUTO 58 % (41-73); Platelet Count 187 K/mm3 (150-400); RDW Coefficient Variation 12.7 % (11.7-14.2); RDW Standard Deviation 44.4 fL (35.1-46.3); Red Blood Cell Count 3.88 M/mm3 (3.80-5.20); White Blood Cell Count 5.17 K/mm3 (4.00-11.30)
[2024-07-28 05:24] LABS: Source, Urine Straight Cath
[2024-07-28 05:31] LABS: Albumin, Blood 3.5 g/dL (3.4-5.0); Albumin/Globulin Ratio 1.2 (0.8-1.8); Bilirubin, Total 0.5 mg/dL (0.1-1.0); Bun/Creatinine Ratio 14.9 (12.0-20.0); Calcium, Blood 9.2 mg/dL (8.5-10.1); Creatinine, Blood 0.8 mg/dL (0.40-1.00); Globulin, Blood 2.8 g/dL (2.2-4.0); Potassium, Blood 4.1 mmol/L (3.5-5.5); Total Protein, Blood 6.3 g/dL (6.4-8.2)
[2024-07-28 05:32] LABS: Appearance, Urine Clear (Clear); Bilirubin, Urine Neg (Neg); Blood, Urine Neg (Neg); Color, Urine Yellow (P-Yellow); Glucose Qualitative, Urine Neg (Neg); Ketones, Urine Neg (Neg); Leukocyte Esterase, Urine Neg (Neg); Nitrite, Urine Neg (Neg); Protein, Urine 1+ (Neg); Specific Gravity, Urine 1.015 (1.003-1.022); Urobilinogen, Urine NORM (Normal)
[2024-07-28] MEDS ORDERED: Lidocaine 4% 1 Patch TOP ONE (06:55)
[2024-07-28] MEDS ORDERED: Ketorolac Tromethamine 30mg Vial IV ONE (06:55)
[2024-07-28] MEDS ORDERED: TraMADol HCl 50 MG Tab PO ONE (06:55)
[2024-07-28] MEDS ORDERED: TRAM50 PO (06:56)
[2024-07-28] MEDS ORDERED: LIDO700A20 TOP (06:57)
[2024-07-28 07:00] VITALS: BP 106/69
== END 2024-07-28 07:24 | disposition home or self-care (01) ==
LOC: ER 00:56
PROVIDERS: Emergency Medicine
DX: S33.5XXA Sprain of ligaments of lumbar spine, initial encounter (principal); X58.XXXA Exposure to other specified factors, initial encounter; Z91.040 Latex allergy status; Z88.5 Allergy status to narcotic agent; Z91.018 Allergy to other foods; Z79.899 Other long term (current) drug therapy; I25.2 Old myocardial infarction
CPT/HCPCS: 74177; 80053; 85025; 96374; 96375; 99284-25; A9270; J1885; J3010; Q9967

== ENCOUNTER 2024-09-01 05:59 | Day surgery (SDC) | payer OTHER ==
[~2024-09-01] VITALS: Ht 180.3 cm; Wt 70.0 kg
[2024-09-01] VITALS (18 sets, daily range): BP systolic 84–129; BP diastolic 47–89
[~2024-09-01 05:59] MED LIST changes: +EFFEXOR XR37.5 MG PO; +METO10 PO
[2024-09-01] MEDS ORDERED: Acetaminophen 500 MG Tab PO SCH ×2 (06:15→08:00)
[2024-09-01] MEDS ORDERED: Chlorhexidine Mouth Care 15 ML UDC MT SCH (06:15)
[2024-09-01] MEDS ORDERED: Vancomycin HCL 1,000 MG in NS 250 ML IV SCH (06:15)
[2024-09-01] MEDS ORDERED: Lactated Ringer's 1,000 ML IV SCH ×2 (06:15→07:05)
[2024-09-01] MEDS ORDERED: OxyCODONE HCL 10 MG TABCR PO SCH (06:15)
[2024-09-01] MEDS ORDERED: CeFAZolin Sodium 2,000 MG in NS 100 ML IV SCH ×2 (06:15→16:00)
[2024-09-01] MEDS ORDERED: Tranexamic Acid 100 ML IV SCH (06:18)
[2024-09-01] MEDS ORDERED: CeFAZolin Sodium 2,000 MG VIAL ONE (06:28)
[2024-09-01] MEDS ORDERED: Bupivacaine 0.5% Inj 10 ML Vial ONE (06:46)
[2024-09-01] MEDS ORDERED: propofoL 100 ML IV ONE (06:46)
[2024-09-01] MEDS ORDERED: Dexmedetomidine HCL 200 MCG / 2 ML ONE (06:57)
[2024-09-01] MEDS ORDERED: NS 50 ML IV ONE (06:58)
[2024-09-01] MEDS ORDERED: OxyCODONE HCL 5 MG TAB PO PRN ×2 (07:00)
[2024-09-01] MEDS ORDERED: Prochlorperazine Edisylate 10 mg Vial IV PRN (07:00)
[2024-09-01] MEDS ORDERED: Magnesium Hydroxide Conc 10 ML UDC PO PRN (07:00)
[2024-09-01] MEDS ORDERED: Ketorolac Tromethamine 30mg Vial ONE (07:02)
[2024-09-01] MEDS ORDERED: Ondansetron HCl 2 MG / ML 2ML Vial ONE (07:02)
[2024-09-01] MEDS ORDERED: Dexamethasone Sod Phos 10 MG/ML 1ML VIAL ONE (07:02)
[2024-09-01] MEDS ORDERED: Metoclopramide HCl 5MG / ML 2ML Vial IV PRN (07:05)
[2024-09-01] MEDS ORDERED: HYDROmorphone HCl/Pf 1MG SYR IV PRN (07:05)
[2024-09-01] MEDS ORDERED: Ondansetron HCl 2 MG / ML 2ML Vial IV PRN (07:05)
[2024-09-01] MEDS ORDERED: FentaNYL Citrate 50 MCG/ML 2 ML Injection ONE ×3 (07:05→10:41)
[2024-09-01] MEDS ORDERED: DiphenhydrAMINE HCL 25 MG Cap PO PRN (07:10)
[2024-09-01] MEDS ORDERED: Ondansetron 4 MG TAB PO PRN (07:10)
[2024-09-01] MEDS ORDERED: Bisacodyl 10 MG Supp PR PRN (07:10)
[2024-09-01] MEDS ORDERED: FLU VACC TS2024-25(6MOS UP)/PF 45 MCG/0.5 ML SYRINGE IM PRN (07:10)
[2024-09-01] MEDS ORDERED: Promethazine HCl 25 MG Tab PO PRN (07:10)
[2024-09-01] MEDS ORDERED: Vancomycin HCl 1000 MG ADDvantage ONE (07:31)
--- NOTE | 2024-09-01 07:49 | NUR ---
0620 AMBULATE TO [facility], CONFIRMED SURGERY AND SURGEON, PRE OP TEACHING DONE. PT STATES "VERY NERVOUS" ENCOURAGED AND USED RELAXING TECHNIQUES WITH PATIENT. 0735 PT EXTREMELY DIFFICULT IV START, REQUIRED 5 ATTEMPTS WITH VEIN FINDER AND ULTRASOUND. LEFT INNER WRIST 18 G IV PLACED ON 5TH ATTEMPT.
[2024-09-01] MEDS ORDERED: Ropivacaine 0.5% HCl/Pf 123.125 MG,EPINEPHrine HCL 0.25 MG,Ketorolac Tromethamine 15 MG... INFIL SCH (07:50)
[2024-09-01] MEDS ORDERED: ePHEDrine Sulfate 50 MG/ML 1ML Injection ONE (08:07)
[2024-09-01] MEDS ORDERED: Vasopressin 20 UNITS/ML 1ML Vial ONE (08:16)
[2024-09-01] MEDS ORDERED: propofoL 20 ML IV ONE ×3 (09:00→09:53)
[2024-09-01] MEDS ORDERED: Venlafaxine HCl 37.5 MG CapCR PO SCH (09:00)
[2024-09-01] MEDS ORDERED: Docusate Sodium 100 MG Cap PO SCH (09:00)
[2024-09-01] MEDS ORDERED: LamoTRIgine 25 MG Tab PO SCH (09:00)
--- NOTE | 2024-09-01 09:00 | NUR ---
09/01/24 0900 Merlin,Kathy SPINAL BLOCK COMPLETED BY UPON ENTRY TO OR. VANCO 1GM IV WAS STARTED PREOPERATIVELY IN DAY SURGERY.
[2024-09-01] MEDS ORDERED: Ketamine HCl 100 MG / ML 5ML Vial ONE (09:29)
--- NOTE | 2024-09-01 11:48 | NUR ---
Spiritual Care Pt. Request Pt. is awake in bed and is unsettled by discomfort in her back and hip. Pt. does welcome my visit, and verbalized that she understands that Father Cameron does not visit rooms, but that she would like to have one of the Eucharistic volunteers visit and provide the Eucharist. Prayed with The Pt. Pt. verbalized gratitude for the spiritual care visit. This typo machine operator then communicated with the Pts. request to the Eucharisitic volunteer.
[2024-09-01] MEDS ORDERED: Ketorolac Tromethamine 15mg Vial IV SCH (12:00)
--- NOTE | 2024-09-01 16:18 | NUR ---
POST OP: REPORT RECEIVED FROM SUPERVISOR INTERNATIONAL RESERVATIONS. PT TO UNIT AT ABOUT 1112. PT IS A/O, VSS. SURGICAL SITE WNL, PT REPORTS SOME NUMBNESS, ABLE TO WIGGLE TOES. REPORTS PAIN 8/10 AT HIP, MEDICATED PER EMAR. ICE PACK IN PLACE. PT INSTRUCTED TO USE CALL LIGHT WHEN NEEDING OOB. CALL LIGHT IN REACH.
--- NOTE | 2024-09-01 16:51 | NUR ---
"Spiritual Care | Pt. Request Pt. is sitting up in a recliner when she welcomes my visit. This pt. had previously visited the Pt. earlier in the day when the Pt. was experiencing great discomfort after her hip procedure. Presently the Pt. verbalizes that she is pain free. The Pt. fallono verbalized that she had seen the Eucharistic volunteer, and was grateful for this concrete fence builder arranging it. This visit seemed to adress the more personal aspect of the Pts. sade. Matters of sade, grief, and family loss are considered. Listen with empathy and a pastoral presence. Considered matters of the Pts. unanswered biblical questions. Pt. displays moments of appropriate emotion. Prayed with Pt. Pt. verbalzied gratitude for the spiritual care visit."
--- NOTE | 2024-09-01 18:42 | NUR ---
summary: pt has done well post op. vss, a/o. able to ambulate with therapy and is voiding. pain well managed with 1 oxy and tylenol. no acute concerns, pt using call light and makes needs known
[2024-09-01] MEDS ORDERED: Vancomycin HCL 1,000 MG in NS 250 ML IV ONE (19:30)
[2024-09-01] MEDS ORDERED: Omeprazole 20 MG CapCR PO SCH (21:00)
[2024-09-02 00:10] VITALS: BP 95/57
[2024-09-02 04:36] VITALS: BP 95/55
--- NOTE | 2024-09-02 04:38 | NUR ---
SHIFT SUMMARY POD1 ELECTIVE LEFT HIP. PAIN MANAGED USING NPIS AND PER EMAR. PT AMBULATING USING FWW & GAIT BELT, 1PA. UP TO CHAIR. TOLERATING PO DIET. LEFT WRIST IV INFILTRATION; NEW IV ACCESS VIA US GUIDED IV TO CORNELL. LEFT HIP DRESSING WITH PRESSURE TAPE REMAINED C/D/I OVERNIGHT. LACHO ARCELIAE, SCDS, AND CRYOTHERAPY IN PLACE. A&OX4. PLEASANT & COOPERATIVE WITH CARES. PT ABLE TO REST DURING SHIFT. PT VOICED UNDERSTANDING OF PLAN OF CARE, DENIES QUESTIONS/CONCERNS AT THIS TIME.
[2024-09-02 05:25] LABS: BASOPHILS ABSOLUTE AUTO 0.01 K/mm3 (0.00-0.23); BASOPHILS PERCENT AUTO 0 % (0-2); EOSINOPHILS PERCENT AUTO 0 % (0-6); Hematocrit 30.7 % (33.0-51.0); Hemoglobin 10.4 g/dL (11.5-16.0); IMMATURE GRAN ABSOLUTE AUTO 0.04 K/mm3 (0.00-0.10); IMMATURE GRAN PERCENT AUTO 0 % (0-1); LYMPHOCYTES ABSOLUTE AUTO 0.91 K/mm3 (0.84-5.20); LYMPHOCYTES PERCENT AUTO 9 % (21-46); MONOCYTES ABSOLUTE AUTO 0.82 K/mm3 (0.16-1.47); MONOCYTES PERCENT AUTO 8 % (4-13); Mean Corpuscular HGB 32.1 pg (26.0-34.0); Mean Corpuscular HGB Conc 33.9 g/dL (31.5-36.5); Mean Corpuscular Volume 95 fL (80-100); Mean Platelet Volume 11.4 fL (9.1-12.4); NEUTROPHILS ABSOLUTE AUTO 8.95 K/mm3 (1.96-9.15); NEUTROPHILS PERCENT AUTO 83 % (41-73); Platelet Count 164 K/mm3 (150-400); RDW Coefficient Variation 13.1 % (11.7-14.2); RDW Standard Deviation 45.7 fL (35.1-46.3); Red Blood Cell Count 3.24 M/mm3 (3.80-5.20); White Blood Cell Count 10.73 K/mm3 (4.00-11.30)
[2024-09-02 05:48] LABS: Bun/Creatinine Ratio 19.3 (12.0-20.0); Calcium, Blood 8.7 mg/dL (8.5-10.1); Creatinine, Blood 0.73 mg/dL (0.40-1.00); Magnesium, Blood 1.8 mg/dL (1.6-2.4); Potassium, Blood 3.8 mmol/L (3.5-5.5)
[2024-09-02] MEDS ORDERED: Trospium Chloride 20 MG Tab PO SCH (06:00)
--- NOTE | 2024-09-02 06:30 | NUR ---
DRESSING CHANGE DR. RODRIGUEZ AT BEDSIDE. COMPLETED DRESSING CHANGE TO L HIP. PT TOLERATED WELL.
[2024-09-02 07:56] VITALS: BP 128/76
[2024-09-02] MEDS ORDERED: Linezolid 600 MG Tab PO SCH (09:00)
[2024-09-02] MEDS ORDERED: Aspirin 81 MG Chew PO SCH (09:00)
[2024-09-02] MEDS ORDERED: ASPI81CH PO (10:05)
[2024-09-02] MEDS ORDERED: LINE600 PO (10:06)
[2024-09-02] MEDS ORDERED: OXYC5 PO (10:07)
--- NOTE | 2024-09-02 10:32 | NUR ---
Pt. is awake and dressed for discharge when welcomes my visit, Pt. verbalized that the Eucharistic licensing analyst had left some items in the room. Prayed with Pt. befire she discharged. Pt. verbalized gratitude for the spiritual care visit. Returned materials to the [facility] volunteers office.
--- NOTE | 2024-09-02 10:56 | NUR ---
DISCHARGE NOTE PATIENT CLEARED BY PHYSICAL AND OCCUPATIONAL THERAPY TO DC HOME WITH OUTPATIENT THERAPY. ALERT AND ORIENTED X4. COMMUNICATES NEEDS EFFECTIVELY. RECEPTIVE TO EDUCATION, ASKS QUESTIONS NEEDED TO GAIN FURTHER UNDERSTANDING. VSS. AMBULATING WITH 1P FWW GB - FOLLOWS POSTERIOR HIP PRECAUTIONS. DRESSINGS TO L HIP C/D/I. PAIN MANAGED WITH PRESCRIBED THERAPY, INCLUDING MEDICATIONS AND COOLING DEVICE. DC EDUCATION PROVIDED - PATIENT STATES UNDERSTANDING. IV REMOVED. PERSONAL BELONGINGS WITH PATIENT. PATIENT TRANSFERRED OFF UNIT TO PERSONAL VEHICLE VIA WHEELCHAIR AT APPROX 1050.
== END 2024-09-02 11:47 | disposition home or self-care (01) ==
LOC: ORSCMMR 05:59 → ORD 07:30 → ORSCMMR 07:30 → SURS 11:04 → ORSCMMR 09-02 11:47
PROVIDERS: Orthopaedic Surgery
PROC: 0SRB0JA Replacement of Left Hip Joint with Synthetic Substitute, Uncemented, Open Approach (ICD-10-PCS; principal; 2024-09-01 07:30)
DX: M16.12 Unilateral primary osteoarthritis, left hip (principal); K21.9 Gastro-esophageal reflux disease without esophagitis; F31.9 Bipolar disorder, unspecified; Z86.73 Personal history of transient ischemic attack (TIA), and cerebral infarction without residual deficits; G47.33 Obstructive sleep apnea (adult) (pediatric); J44.9 Chronic obstructive pulmonary disease, unspecified; I25.2 Old myocardial infarction; F43.10 Post-traumatic stress disorder, unspecified; Z79.899 Other long term (current) drug therapy; Z87.891 Personal history of nicotine dependence
CPT/HCPCS: 36415; 72170; 80048; 83735; 85025; 97110; 97116; 97161; 97166; 97530; 97535; A9270; C1713; C1776; J0171; J0690; J0735; J1100; J1171; J1885; J2405; J2704; J2765; J2795; J3010; J3370; J7050; J7120

== ENCOUNTER 2024-11-27 12:10 | Emergency (ER) | payer OTHER ==
[~2024-11-27] VITALS: Ht 149.9 cm; Wt 69.8 kg
[~2024-11-27 12:10] MED LIST changes: +LINE600 PO; +OXYC5 PO
[2024-11-27 12:17] VITALS: BP 119/80
[2024-11-27] MEDS ORDERED: TiZANidine HCl 4 MG Tab PO ONE (12:50)
[2024-11-27] MEDS ORDERED: LIDO700A20 TOP (13:37)
== END 2024-11-27 13:54 | disposition home or self-care (01) ==
LOC: ER 12:10
DX: M54.50 Low back pain, unspecified (principal); G89.29 Other chronic pain; Z79.82 Long term (current) use of aspirin; Z79.899 Other long term (current) drug therapy; Z91.040 Latex allergy status; Z91.018 Allergy to other foods; Z88.5 Allergy status to narcotic agent
CPT/HCPCS: 72100

== ENCOUNTER 2025-08-21 11:28 | Emergency (ER) | payer OTHER ==
[~2025-08-21] VITALS: Ht 144.8 cm; Wt 70.3 kg
[~2025-08-21 11:28] MED LIST changes: +Acetaminophen650 M1 PO
[2025-08-21 11:44] VITALS: BP 133/84
== END 2025-08-21 15:17 | disposition home or self-care (01) ==
LOC: ER 11:28
DX: S00.11XA Contusion of right eyelid and periocular area, initial encounter (principal); S00.12XA Contusion of left eyelid and periocular area, initial encounter; M54.2 Cervicalgia; G89.29 Other chronic pain; I25.10 Atherosclerotic heart disease of native coronary artery without angina pectoris; I25.2 Old myocardial infarction; Z95.1 Presence of aortocoronary bypass graft; Z95.5 Presence of coronary angioplasty implant and graft; Z87.891 Personal history of nicotine dependence; Z91.040 Latex allergy status; Z91.018 Allergy to other foods; Z88.5 Allergy status to narcotic agent; Z79.899 Other long term (current) drug therapy; W22.8XXA Striking against or struck by other objects, initial encounter
CPT/HCPCS: 70450; 72125; 99283-25

== ENCOUNTER 2025-09-14 05:59 | Day surgery (SDC) | payer OTHER ==
[2025-09-14] VITALS (17 sets, daily range): BP systolic 84–145; BP diastolic 52–98
[~2025-09-14] VITALS: Ht 144.8 cm; Wt 73.0 kg
[~2025-09-14 05:59] MED LIST changes: -EFFEXOR XR37.5 MG PO; -METO10 PO; +METO5A PO; +Methocarbamol500 MG PO; -ONDA4 PO; +ONDA4ODT SL; +VENL75ER PO
[2025-09-14] MEDS ORDERED: Tranexamic Acid 100 ML IV SCH (06:15)
[2025-09-14] MEDS ORDERED: CeFAZolin Sodium 2,000 MG in NS 100 ML IV SCH ×2 (06:15→15:45)
[2025-09-14] MEDS ORDERED: Chlorhexidine Mouth Care 15 ML UDC MT SCH (06:15)
[2025-09-14] MEDS ORDERED: FLU VACC TS2025-26(6MOS UP)/PF 45 MCG/0.5 ML SYRINGE IM SCH (07:00)
[2025-09-14] MEDS ORDERED: HYDROmorphone HCl/Pf 1MG SYR IV PRN ×3 (07:00→08:20)
[2025-09-14] MEDS ORDERED: Prochlorperazine Edisylate 10 mg Vial IV PRN (07:00)
[2025-09-14] MEDS ORDERED: Metoclopramide HCl 5MG / ML 2ML Vial IV PRN (07:05)
[2025-09-14] MEDS ORDERED: Ondansetron HCl 2 MG / ML 2ML Vial IV PRN (07:05)
[2025-09-14] MEDS ORDERED: Magnesium Hydroxide Conc 10 ML UDC PO PRN (07:05)
[2025-09-14] MEDS ORDERED: FentaNYL Citrate 50 MCG/ML 2 ML Injection ONE ×2 (07:17→10:36)
[2025-09-14] MEDS ORDERED: Rocuronium Bromide 10 MG/ML 5ML Injection IV ONE ×2 (07:17→08:52)
[2025-09-14] MEDS ORDERED: Ropivacaine 0.5% HCl/Pf 123.125 MG,EPINEPHrine HCL 0.25 MG,Ketorolac Tromethamine 15 MG... INFIL SCH (08:00)
[2025-09-14] MEDS ORDERED: Albuterol 2.5 MG/3 ML VIAL INH PRN (08:15)
[2025-09-14] MEDS ORDERED: FentaNYL Citrate 50 MCG/ML 2 ML Injection IV PRN ×2 (08:15→08:20)
[2025-09-14] MEDS ORDERED: HYDROmorphone HCl/Pf 1MG SYR ONE ×2 (08:25→10:36)
[2025-09-14] MEDS ORDERED: Ketamine HCl 100 MG / ML 5ML Vial ONE (09:10)
--- NOTE | 2025-09-14 11:50 | NUR ---
POST-OP PATIENT ARRIVES TO ROOM 217 1125 ON 2L NC, SATS 98-100% VITALS STABLE AND CONT. RIGHT HIP WITH GAUZE AND TEGADERM, C/D/I. PATIENT REPORTS 8/10 PAIN. ICE AND SCDS ON. PATIENT TOLERATING SNACKS WILL MEDICATE PER EMAR. CALL LIGHT IN REACH.
[2025-09-14] MEDS ORDERED: Ketorolac Tromethamine 15mg Vial IV SCH (12:00)
--- NOTE | 2025-09-14 12:45 | NUR ---
UPDATE PATIENT UP WITH 2 ASSIST TO BSC, REPORTING NUMBNESS IN RIGHT LEG FROM KNEE DOWN TO ANKLE, REPORTED NO NUMBNESS ON ARRIVAL TO UNIT. REPORTS NUMBNESS AND HEAVINESS SINCE GETTING UP TO BSC. NEUROLOGY DIRECTOR NOTIFIED AND SENSATION ASSESSMENT DONE. ABLE TO WIGGLE TOES ON RIGHT FOOT, UNABLE TO FLEX RIGHT FOOT. REPORTS NO CHANGE IN EPIC WILLOW ANALYST STRENGTH TO BILAT HANDS, PUPILS ARE EQUAL AND REACTIVE. ABLE TO SMILE, AND EAT AND DRINK WITH NO SWALLOWING ISSUES. PATIENT IS REPORTING LEG FEELS ASLEEP BUT IS UNABLE TO LIFT LEG. NO SPINAL BLOCK IN SURGERY. PEDAL PULSES ARE PALPABLE, AND CAP REFILL IS WNL. SKIN IS WARM TO TOUCH. MESSAGE OUT TO DR. VILLALOBOS.
--- NOTE | 2025-09-14 16:33 | NUR ---
Pt. is awake in a recliner when she welcomed my visit. Pt. is pleasant and verbalized that she recalled this quarter backer from a previous hospital visit. Facilitated a life update and considered matters of sade and belief. Pt. displays a bouyant spirit and verbalizes that she was able to have Holy Communion with our eucharistic volunteer earlier in the day. Pt. verbalized that she has great confidence in doctor Nisha and his team. Prayed with Pt. Pt. verbalized gratitude for the spiritual care visit.
--- NOTE | 2025-09-14 16:44 | NUR ---
SHIFT SUMMARY PATIENT IS POST-OP DAY 0 R YOHANA. TELFA AND TEGADERM DRESSING IS C/D/I. ICE AND SCDS IN PLACE. PATIENT HAVING DECREASED SENSATION TO RLE, AND UNABLE TO FLEX FOOT, LIFT LEG OR BEAR FULL WEIGHT. LEG DID BUCKLE WHEN ASSISTING TO BSC AND CHAIR, 2 PERSON TRANSFER WITH GB AND FWW. PATIENT ABLE TO VOID. AND TOELRATE MEDICATIONS. DENIES N/V. THERAPY TO CHECK ON PATIENT IN THE AM. VSS, CALL LIGHT IN REACH ABLE TO MAKE NEEDS KNOWN.
[2025-09-14] MEDS ORDERED: ASPI81CH PO (16:47)
[2025-09-14] MEDS ORDERED: LINE600 PO (16:48)
[2025-09-14] MEDS ORDERED: OXAYDO5 M1 PO (16:49)
[2025-09-15] VITALS (7 sets, daily range): BP systolic 90–100; BP diastolic 53–69
--- NOTE | 2025-09-15 03:12 | NUR ---
NOC SUMMARY- PT NUMBNESS HAS IMPROVED. PT PAIN MANAGED WELL. PT HAS BEEN RESTING COMFORTABLY. PT DRESSING REMAIN C/D/I. PT HAS A PUREWICH DEVICE IN PLACE. PT TOLERATING PO AND VOIDING. NO NEW ISSUES. CALL LIGHT IN REACH.
[2025-09-15 05:29] LABS: BASOPHILS ABSOLUTE AUTO 0.02 K/mm3 (0.00-0.23); BASOPHILS PERCENT AUTO 0 % (0-2); EOSINOPHILS ABSOLUTE AUTO 0.00 K/mm3 (0.00-0.68); EOSINOPHILS PERCENT AUTO 0 % (0-6); Hematocrit 27.7 % (33.0-51.0); Hemoglobin 8.8 g/dL (11.5-16.0); IMMATURE GRAN ABSOLUTE AUTO 0.05 K/mm3 (0.00-0.10); IMMATURE GRAN PERCENT AUTO 1 % (0-1); LYMPHOCYTES ABSOLUTE AUTO 0.95 K/mm3 (0.84-5.20); LYMPHOCYTES PERCENT AUTO 9 % (21-46); MONOCYTES ABSOLUTE AUTO 0.88 K/mm3 (0.16-1.47); MONOCYTES PERCENT AUTO 8 % (4-13); Mean Corpuscular HGB Conc 31.8 g/dL (31.5-36.5); Mean Corpuscular Volume 93 fL (80-100); NEUTROPHILS ABSOLUTE AUTO 8.81 K/mm3 (1.96-9.15); NEUTROPHILS PERCENT AUTO 82 % (41-73); NRBC ABSOLUTE 0.00 K/mm3 (0.00-0.02); NRBC Auto 0.0 /100 WBC (0.0-0.2); Platelet Count 205 K/mm3 (150-400); RDW Coefficient Variation 14.1 % (11.7-14.2); RDW Standard Deviation 47.4 fL (35.1-46.3)
[2025-09-15 06:20] LABS: Anion Gap 9.0 mmol/L (3-11); Blood Urea Nitrogen 11.0 mg/dL (8-24); CO2, Blood 26.0 mmol/L (21-32); Calcium, Blood 8.8 mg/dL (8.5-10.1); Chloride, Blood 108.0 mmol/L (98-108); Creatinine, Blood 0.74 mg/dL (0.40-1.00); Glucose, Blood 117.0 mg/dL (70-99); Magnesium, Blood 1.9 mg/dL (1.6-2.4); Potassium, Blood 3.9 mmol/L (3.5-5.5); Sodium, Blood 139.0 mmol/L (136-145)
--- NOTE | 2025-09-15 19:27 | NUR ---
SHIFT SUMMARY POD1 R YOHANA, A/OX4, VSS, TOLERATING PO, PAIN MANAGED PER EMAR, ABLE TO STAND PIVOT TO BSC AND CHAIR, LIMITED IMPROVMENT IN RLE SENSATION/MOVEMENT. AT APPROX 1850 PT CALLED FOR ASSISTANCE, FOUND TO BE IN BED SOBBING STATING THE PAIN CAME ON SUDDENLY, REQUESTED PAIN MEDICATION. PRIOR IV HAD BEEN PULLED D/T IT GOING BAD, NEW IV PLACED AND SHE WAS MEDICATED FOR PAIN, SHE REPORTS FEELING SIGNIFICANTLY BETTER WITHIN A FEW MINUTES OF PAIN MED ADMINISTRATION.
--- NOTE | 2025-09-16 04:31 | NUR ---
NOC SUMMARY- PAIN MANAGED WELL. PT STILL HAVING ISSUE WITH MOVING LEG. PT ABLE TO BEAR WEIGHT ON R LEG. PT VOIDING VIA BSC. PT ALSO HAVING INCREASED BACK PAIN IN REGARDS TO RECENT BACK SX. PT REPOSITIONED FOR COMFORT NEEDED. CALL LIGHT IN REACH.
--- NOTE | 2025-09-16 05:52 | NUR ---
ASSUMED CARE REPORT TAKEN TO ASSUME CARE OF PT. PT RESTING IN BED WITH EYES CLOSED. CHEST RISES AND FALLS. CALL LIGHT WITHIN REACH.
[2025-09-16 05:54] VITALS: BP 94/60
[2025-09-16 06:59] VITALS: BP 96/56
[2025-09-16 14:49] VITALS: BP 104/78
--- NOTE | 2025-09-16 16:46 | NUR ---
PATIENT DISCHARGED HOME WITH HOME HEALTH AT 1630. DISCHARGE INFORMATION GONE OVER WITH PATIENT AND PATIENT'S SIGNIFICANT OTHER. INFORMATION GONE OVER ABOUT HIP PRECAUTIONS, WARNING SIGNS, PAIN CONTROL, FOLLOW UP APPOINTMENT, WHEN TO CALL MD AND WHEN TO SEEK EMERGENT HELP. PATIENT VERBALIZED UNDERSTANDING. PATIENT SENT HOME WITH ICE MACHINE. PATIENT STATES SHE HAS PAIN MEDICATION AND ANTIBIOTIC AT HOME. PATIENT VSS, STABLE AT [facility]. PAIN WELL CONTROLLED. LEFT VIA WHEELCHAIR WITH THIS RN, WENT HOME IN FRIEND'S PRIVATE VEHICLE.
== END 2025-09-16 16:33 | disposition home health service (06) ==
LOC: ORSCMMR 05:59 → ORD 07:30 → SURS 11:24 → ORSCMMR 09-16 16:33
PROVIDERS: Orthopaedic Surgery
PROC: 0SR90JA Replacement of Right Hip Joint with Synthetic Substitute, Uncemented, Open Approach (ICD-10-PCS; principal; 2025-09-14 07:30)
DX: M16.11 Unilateral primary osteoarthritis, right hip (principal); J45.909 Unspecified asthma, uncomplicated; G47.33 Obstructive sleep apnea (adult) (pediatric); K21.9 Gastro-esophageal reflux disease without esophagitis; I69.351 Hemiplegia and hemiparesis following cerebral infarction affecting right dominant side; F31.9 Bipolar disorder, unspecified; Z79.899 Other long term (current) drug therapy
CPT/HCPCS: 36415; 72170; 80048; 83735; 85025; 94760; 97110; 97112; 97161; 97165; 97530; 97535; A9270; C1713; C1776; J0166; J0690; J0735; J1171; J1885; J2405; J2704; J2765; J2795; J3010; J3373; J7050; J7120